=== PATIENT | male | born 1985 | race Caucasian/White ===

== ENCOUNTER 2022-06-18 11:52 | Emergency (ER) | payer OTHER ==
[~2022-06-18] VITALS: Ht 180.3 cm; Wt 83.9 kg
[~2022-06-18 11:52] MED LIST: HYDACE5 PO
[2022-06-18] MEDS ORDERED: Flagyl500 MG PO (12:42)
[2022-06-19 22:09] LABS: CHLAMYDIA TRACHOMATIS, NAA Negative (Negative)
== END 2022-06-18 14:12 | disposition home or self-care (01) ==
LOC: ER 11:52
PROVIDERS: Physician Assistant
DX: A59.9 Trichomoniasis, unspecified (principal); B96.89 Other specified bacterial agents as the cause of diseases classified elsewhere
CPT/HCPCS: 87491; 87591; A9270

== ENCOUNTER 2025-02-01 20:31 | Emergency (ER) | payer OTHER ==
[~2025-02-01] VITALS: Ht 180.3 cm; Wt 45.4 kg
[~2025-02-01 20:31] MED LIST changes: +Flagyl500 MG PO
[2025-02-01 21:28] VITALS: BP 112/69
[2025-02-01] MEDS ORDERED: CEPH500 PO (22:42)
[2025-02-01] MEDS ORDERED: Doxycycline Mo100 M1 PO (22:42)
[2025-02-02] MEDS ORDERED: CEPH500 PO (15:13)
[2025-02-02] MEDS ORDERED: Doxycycline Mo100 M1 PO (15:13)
== END 2025-02-01 23:02 | disposition home or self-care (01) ==
LOC: ER 20:31
DX: L02.416 Cutaneous abscess of left lower limb (principal); L03.116 Cellulitis of left lower limb
CPT/HCPCS: 99283; A9270